=== PATIENT | male | born 1980 | race Caucasian/White ===

== ENCOUNTER 2016-08-25 18:48 | Emergency (ER) | payer OTHER ==
[2016-08-25 19:22] LABS: Hematocrit 41.7 % (42.0-52.0); Hemoglobin 14.7 gm/dL (13.5-18.0); Mean Cell Volume 87.2 fl (78-100); Mean Corpuscular Hemoglobin 30.8 pg (27-31); Mean Corpuscular Hgb Conc 35.3 g/dl (32-36); Mean Platelet Volume 9.7 fl (6.0-9.5); Neutrophil % 67.3 % (42-75.0); Platelet Count 225 K/mm3 (150-450); Red Blood Count 4.78 M/mm3 (4.7-6.0); Red Cell Distribution Width 12.2 % (11.5-14.0); White Blood Count 7.5 K/mm3 (4.0-10.5)
[2016-08-25 19:35] LABS: Prothrombin Time (Patient) 10.7 Seconds (9.4-11.4)
[2016-08-25 19:36] LABS: INR 1.03 INR (0.90-1.10); Partial Thrombolplastin Time 26.2 Seconds (24-32)
[2016-08-25 19:42] LABS: ALT 32 U/L (19-67); AST 24 U/L (0-48); Albumin * 4.1 gm/dl (3.4-5.0); Alkaline Phosphatase * 61 U/L (50-170); Anion Gap 16.3 mmol/L (6.8-13.8); BUN/Creatinine Ratio 9.6 (9.0-21.6); Bilirubin, Total 0.6 mg/dL (0.0-1.1); Blood Urea Nitrogen 9 mg/dL (6-23); Ca. Corrected For Albumin 9.1 mg/dL (8.4-10.2); Calcium * 9.5 mg/dL (7.9-10.9); Carbon Dioxide 24.4 mmol/L (24-32.6); Chloride 102 mmol/L (97-106); Glucose * 131 mg/dL (70-110); Potassium 3.7 mmol/L (3.4-4.6); Sodium 139 mmol/L (132-142); T4 Free * 1.03 ng/dL (0.76-1.46); TSH * 2.372 uIU/mL (0.358-3.74); Total Protein 7.6 gm/dL (6.2-8.2)
[2016-08-25 19:44] LABS: Troponin I Less than 0.017 ng/ml (0.00-0.10)
[2016-08-25 19:53] LABS: Cocaine Ur Negative (NEGATIVE); Urine Barbiturate Negative (NEGATIVE); Urine Benzodiazepines Negative (NEGATIVE); Urine Opiates Negative (NEGATIVE); Urine PCP Negative (NEGATIVE)
[2016-08-25 19:54] LABS: Urine THC Positive (NEGATIVE)
--- NOTE | 2016-08-25 20:16 | ERNOTE ---
Chest Pain/Cardiac HPI Date of Service: 08/25/16 Chief Complaint: Chest Pain Time Seen by Provider: 08/25/16 18:57 Source: patient Exam Limitations: no limitations Immunizations: IMMUNIZATION HX Immunizations Up to Date Yes History of Influenza Vaccine No Hx Pneumococcal Vaccination No Allergies/Adverse Reactions: Allergies latex Allergy (Verified 06/07/13 21:43) shellfish derived Allergy (Verified 06/07/13 21:43) Sulfa (Sulfonamide Antibiotics) Allergy (Verified 08/25/16 19:25) Home Medications: HOME MEDICATIONS FLUoxetine HCL [Prozac] 40 mg PO DAILY 08/25/16 [Last Taken Unknown] traZODone HCL [Trazodone HCl] 100 mg PO HS 08/25/16 [Last Taken Unknown] Narrative: 36-year-old male presenting to the emergency room via EMS for left chest pain. Describes left chest wall pain as a stabbing intermittent pain. Patient states that he had a seizure at correctional facility. Ofc. states that he witnessed him thrash after he was on the floor and hit his head. He states he also has a headache at this time. Patient states that his chest pain started at noon today. Facility reports that chest pain was reported at time of "seizure" Date (Duration): 08/25/16 Timing: intermittent Severity/Quality: mild Location: left chest Chest Pain Radiation: no radiation Activities at Onset: activity Modifying Factors - Improves: Present: nothing Modifying Factors - Worsens: Present: nothing Nitro Today/Relief: no nitro taken today Aspirin Treatment Today: no aspirin today Associated Symptoms: Present: headache, syncope. Absent: dizziness, cough, shortness of breath, diaphoresis, fever/chills, palpitations, heartburn, nausea , vomiting, abdominal pain, weakness, back pain, swelling/lump in chest Prior Chest Pain/Cardiac Workup: Reports: no prior cardiac workup Review of Systems - Review of Systems Constitutional: Present: See HPI EYE: Present: no symptoms reported ENT: Present: no symptoms reported Respiratory: Present: no symptoms reported Cardiology: Present: no symptoms reported Gastrointestinal/Abdominal: Present: no symptoms reported Genitourinary: Present: no symptoms reported Musculoskeletal: Present: See HPI, muscle pain - pain to palpation of left chest area. Skin: Present: no symptoms reported Neurological: Present: See HPI - patient states he dosnt kow what happened, he just woke up on the floor. officer states patient was able to make eyecontact and focus during ' seizure' activity. Endocrine: Present: no symptoms reported Hematologic/Lymphatic: Present: no symptoms reported Psych: Present: no symptoms reported - Patient's Past Medical History Patient History - Medical: Alcohol Abuse, Depression, GERD, Headache, Migraines , Seizures Patient History - Cardiac/Respiratory: No pertinent hx Patient History - Cancer: No Hx of Cancer Patient History - Surgical Procedures: Vasectomy Patient History - Other: None - Social History Living Situations: other - longterm Abuse History: No History of abuse Psych History: Psychiatric Hx, Hx of Anxiety, Hx of Depression Smoking Status: Current every day smoker Have you smoked in the past 12 months: Yes Do you dip or chew tobacco: No Alcohol Use: none Drug Use: marijuana - Immunizations Immunizations Up to Date: Yes Hx Pneumococcal Vaccination: No History of Influenza Vaccine: No Physical Exam - Physical Exam Narrative: Resection of male presenting to the emergency room via EMS for chest pain he was incarcerated. Patient complains of left chest pain. Painful upon palpation. No pain with deep breathing or repositioning. Per campus security officer patient had jerking movements while laying on the floor. He was able to make eye contact with the officers during this "" seizure-like activity". he has a small bump over her left eyebrow where he did hit his head on the floor. area is slightly red but skin is intact General Appearance: Present: wd/wn, alert, no apparent distress. Absent: mild distress, moderate distress, severe distress, anxious Eye Exam: Normal inspection: bilateral Ears, Nose, Throat: Present: normal ENT inspection Neck: Present: normal inspection, nontender Respiratory: Present: no respiratory distress, lungs clear, chest tenderness - over left pectoral area Cardiovascular/Chest: Present: regular rate, rhythm, no murmur, normal peripheral pulses Gastrointestinal/Abdominal: Present: normal bowel sounds Back Exam: Present: normal inspection, normal range of motion Extremity Exam: Present: normal inspection Neurological Exam: Present: alert, oriented, normal mood/affect, no motor/ sensory deficits, 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 Absent: motor weakness Skin Exam: Present: normal color, warm/dry Lymphatic Exam: Present: no adenopathy ED Progress - Results and Orders Patient's Lab Results:: I have reviewed the patient's lab results. Results and Orders: no acute findings - Vital Signs Vital Signs: Vital Signs 08/25/16 08/25/16 08/25/16 18:49 19:22 19:32 Temperature 37.2 C 37.2 C Pulse Rate 96 117 H 99 Respiratory 20 20 Rate Blood Pressure 110/64 110/64 O2 Sat by Pulse 98 98 Oximetry - EKG EKG read: Interp. by fl - dr arpit bhandari EKG Comments: sinus tach - X-Ray X-Ray #1 X-Ray: chest Interpretation: Reviewed by me X-ray Comments: Findings: Heart size and vascularity appear within normal limits. Lung lucio show no focal infiltrates or effusions. IMPRESSION: NO ACUTE CARDIOPULMONARY DISEASE IDENTIFIED. Electronically signed by Clovis Vegas M.D.. - CT/Ultrasound CT/Ultrasound Narrative: Head CT Findings: Exam shows symmetric appearing ventricular system and cortical sulci. There is no positive mass effect or midline shift. There is no evidence for intracranial hemorrhage. Visualized paranasal sinuses and mastoid air cells appear adequately aerated. No skull fractures identified. Findings conveyed to emergency room personnel at 1946 hours by [facility]. IMPRESSION: NO ACUTE INTRACRANIAL PATHOLOGY IDENTIFIED. Electronically signed by Clovis Vegas M.D.. - Progress/Reassessment Chief Complaint: Chest Pain Progress:: Improved Plan - Plan Plan: Patient is to return to correctional facility. Follow-up with physician at facility. ER attending Gigit reviewed Patient's chart and agrees with this provider's assessment and discharge plan Departure - Departure Clinical Impression: Muscle contusion, Left-sided chest wall pain Disposition: Half-Way Condition: Stable Instructions: Chest Wall Pain, [id number] Additional Instructions: Patient is to return back to correctional facility. He may follow up with the primary care provider or facility provider tomorrow. May take [id number] pain medications for left chest wall pain. Return to the emergency room if pain increases or is unable to be controlled by oral pain medications. Return to the emergency room if seizure-like activity recurs. Return to the emergency room if symptoms continue to persist or new symptoms arise.
[2016-08-25 21:04] VITALS: BP 104/55
== END 2016-08-25 21:02 ==
LOC: ER 18:48
DX: S20.212A Contusion of left front wall of thorax, initial encounter (principal); X58.XXXA Exposure to other specified factors, initial encounter; Y93.9 Activity, unspecified; Y92.89 Other specified places as the place of occurrence of the external cause; Y99.8 Other external cause status

== ENCOUNTER 2016-12-28 03:35 | Emergency (ER) | payer SELFPAY ==
--- NOTE | 2016-12-28 04:13 | ERNOTE ---
Integumentary HPI - Narrative Date of Service: 12/28/16 - General Presenting Symptoms: rash Time Seen by Provider: 12/28/16 04:07 Source: patient - Immun/Allergies/Home Medications Immunizations: IMMUNIZATION HX Immunizations Up to Date Yes History of Influenza Vaccine No Hx Pneumococcal Vaccination No Allergies/Adverse Reactions: Allergies Allergy/AdvReac Type Severity Reaction Status Date / Time latex Allergy Verified 06/07/13 21:43 shellfish derived Allergy Verified 06/07/13 21:43 Sulfa (Sulfonamide Allergy Verified 08/25/16 19:25 Antibiotics) ibuprofen AdvReac Verified 12/28/16 04:06 trazodone AdvReac Verified 12/28/16 04:06 Home Medications: HOME MEDICATIONS Cholecalciferol [Vitamin D] 1,000 unit PO DAILY 12/28/16 [Last Taken Unknown] Famotidine [Pepcid] 40 mg PO DAILY #20 tablet 12/28/16 [Last Taken Unknown] predniSONE [Prednisone] See Taper PO DAILY #20 tablet 12/28/16 [Last Taken Unknown] - History of Present Illness Narrative: 36-year-old male established patient of Dr. Lombardo in [place] presents to emergency room complaining of significant rash in his lower extremities so severely itchy. Patient on Friday had increase exposure and by Friday he had diffuse erythematous papular rash in the lower extremities extremely itchy unresponsive to Benadryl and topical steroid creams. Patient has a past history of hypersensitivity to these contact irritants and is here for treatment. Date (Duration): 12/18/16 Time (Timing): 08:00 Location: Reports: lower extremity Quality: Reports: itching Severity: severe Modifying Factors - (Improves): Reports: nothing, other - topical Benadryl as well as oral.. Denies: prednisone, topical steroids Modifying Factors - (Worsens): Reports: nothing Associated Symptoms: Reports: denies symptoms Prior Treatment: Reports: other - has had similar problems in the past. Requiring a cyst shot of steroid. Review of Systems - Narrative Narrative: Past medical history surgical history, medications, allergies, family history were all reviewed. - Review of Systems Constitutional: Present: no symptoms reported EYE: Present: no symptoms reported, blurred vision ENT: Present: no symptoms reported Respiratory: Present: no symptoms reported Cardiology: Present: no symptoms reported Gastrointestinal/Abdominal: Present: no symptoms reported Genitourinary: Present: no symptoms reported Musculoskeletal: Present: no symptoms reported Skin: Present: See HPI, rash Neurological: Present: no symptoms reported Endocrine: Present: no symptoms reported Hematologic/Lymphatic: Present: no symptoms reported Psych: Present: no symptoms reported All Other Systems: All systems neg except as marked - Narrative Narrative: All history below review - Patient's Past Medical History Patient History - Medical: Alcohol Abuse, Depression, GERD, Headache, Migraines , Seizures Patient History - Cardiac/Respiratory: No pertinent hx Patient History - Cancer: No Hx of Cancer Patient History - Surgical Procedures: Vasectomy Patient History - Other: None - Social History Living Situations: significant other Abuse History: No History of abuse Psych History: Psychiatric Hx, Hx of Anxiety, Hx of Depression Smoking Status: Former smoker Alcohol Use: rarely Drug Use: marijuana - Immunizations Immunizations Up to Date: Yes Hx Pneumococcal Vaccination: No History of Influenza Vaccine: No Physical Exam - Physical Exam General Appearance: Present: wd/wn, alert, moderate distress Head Exam: Present: normal inspection, no evidence of injury Eye Exam: Normal inspection: bilateral, PERRL: bilateral, EOMI: bilateral Neck: Present: normal inspection, nontender Respiratory: Present: no respiratory distress, normal breath sounds, no accessory muscle use, chest nontender Cardiovascular/Chest: Present: regular rate, rhythm, no murmur, normal peripheral pulses Peripheral Pulses: N=norm/S=strong/W=weak/B=bound/A=absent: Carotid (R): Normal , Carotid (L): Normal Gastrointestinal/Abdominal: Present: normal bowel sounds, nontender, nondistended, soft, no organomegaly Rectal Exam: Present: deferred Male Genitals Exam: Present: deferred Back Exam: Present: normal inspection, normal range of motion, no CVA tenderness Extremity Exam: Present: normal inspection, normal range of motion, other - diffuse maculopapular rash. Demonstrating all the way up to mid thigh. Bilaterally lower extremities. Skin Exam: Present: skin rash, other ED Progress - Date and Time Seen: Date and Time: 12/28/16 05:04 Patient will get Solu-Medrol 125 mg IM treatment. Pepcid 20 mg by mouth. He is oriented taken 125 mg of Benadryl on the last 5 hours so we will not repeat this at this time. - Vital Signs Patient's Vital Signs:: I have reviewed the patient's vital signs. Vital Signs: Vital Signs 12/28/16 03:58 Temperature 36.5 C Pulse Rate 80 Respiratory 14 Rate Blood Pressure 114/70 O2 Sat by Pulse 97 Oximetry - Progress/Reassessment Progress:: Improved - itchiness is better Plan - Plan Plan: 06 10 AM patient feels greatly improved regarding of the itchiness patient is stable for discharge prescription for prednisone taper and famotidine 40 mg daily was prescribed for him to follow up with his primary care physician as well. Departure Clinical Impression: Contact allergic reaction - Departure Disposition: Home self-care Condition: Good Instructions: Poison [place] Dermatitis, Poison [place] Dermatitis, [id number] Referrals: Allan Lombardo MD [Primary Care Provider] - Prescriptions: Famotidine [Pepcid] 40 mg PO DAILY #20 tablet predniSONE [Prednisone] See Taper PO DAILY #20 tablet
[2016-12-28] MEDS ORDERED: METHYLPREDNISOLONE SOD SUCC/PF 125 MG/2 ML VIAL IM ONE (04:56)
[2016-12-28] MEDS ORDERED: FAMOTIDINE 20 MG TABLET PO ONE (04:57)
[2016-12-28] MEDS ORDERED: METHYLPREDNISOLONE SOD SUCC/PF 125 MG/2 ML VIAL ONE (05:15)
[2016-12-28] MEDS ORDERED: FAMOTIDINE 20 MG TABLET ONE (05:15)
[2016-12-28 06:17] VITALS: BP 122/71
== END 2016-12-28 06:21 | disposition home or self-care (01) ==
LOC: ER 03:35
DX: L23.9 Allergic contact dermatitis, unspecified cause (principal)